=== PATIENT | male | born 1960 | race Two or more races ===

== ENCOUNTER 2023-03-02 13:23 | Inpatient (IN) | payer SELFPAY ==
[~2023-03-02] VITALS: Ht 170.2 cm; Wt 80.0 kg
[2023-03-02 14:28] LABS: Basophils # (auto) 0.1 10 ^3/uL (0-0.2); Basophils % (auto) 0.4 % (0.0-2.0); Eosinophils # (auto) 0 10 ^3/uL (0-0.8); Eosinophils % (auto) 0.3 % (0.0-7.0); Hematocrit 42.6 % (41.0-53.0); Hemoglobin 14.6 g/dL (13.5-17.5); Lymphocytes # (auto) 1.1 10 ^3/uL (0.4-5.4); Lymphocytes % (auto) 8.2 % (10.0-50.0); Mean Corpuscular Hemoglobin 28.8 pg (28.0-32.0); Mean Corpuscular Hgb Conc. 34.3 g/dL (32.0-36.0); Mean Corpuscular Volume 83.9 fL (80.0-100.0); Monocytes # (auto) 0.8 10 ^3/uL (0-1.3); Monocytes % (auto) 6.4 % (0.0-12.0); Neutrophils # (auto) 11.3 10 ^3/uL (1.6-8.6); Neutrophils % (auto) 84.7 % (37.0-80.0); Nucleated Red Blood Cells % 0.1 %; Red Blood Cells 5.08 10^6/uL (4.5-5.90); Red Cell Distribution Width 13.3 % (11.8-14.3); White Blood Cell 13.3 10^3/uL (4.4-10.8)
[2023-03-02] MEDS ORDERED: SODIUM CHLORIDE 0.9% 500 ML IV ONE (14:30)
[2023-03-02 14:45] VITALS: PULSE 73; RESP 20; O2SAT 97
[2023-03-02 14:49] LABS: Alanine Aminotransferase 20 U/L (7-40); Albumin 4.4 g/dL (3.2-4.8); Alkaline Phosphatase 97 U/L (46-116); Anion Gap 8 (5-15); Aspartate Aminotransferase 22 U/L (13-40); BUN/Creatinine Ratio 17.9 (10.0-20.0); Blood Urea Nitrogen 17 mg/dL (9-23); Calcium 9.6 mg/dL (8.5-10.1); Carbon Dioxide 28 mmol/L (20-30); Chloride 100 mmol/L (98-107); Glucose 231 mg/dL (74-106); Potassium 4.3 mmol/L (3.5-5.1); Sodium 136 mmol/L (136-145)
[2023-03-02 14:50] LABS: Bilirubin, Total 0.7 mg/dL (0.2-1.0); Total Protein 7.6 g/dL (5.7-8.2)
[2023-03-02] MEDS ORDERED: ONDANSETRON HCL 4 MG/2 ML VIAL IV ONE (15:30)
[2023-03-02] MEDS ORDERED: MORPHINE SULFATE 4 MG/ML SYR/VIAL IV ONE (15:30)
[2023-03-02 15:41] LABS: Erythrocyte Sedimentation Rate 69 mm/hr (0-20)
[2023-03-02 15:49] LABS: INR 1.06 (0.9-1.15); Partial Thromboplastin Time 32.8 SEC (24.5-34.5); Prothrombin Time 11.1 sec (9.3-11.8)
[2023-03-02 17:42] LABS: Urine Bacteria NONE SEEN /hpf (None Seen); Urine Blood Negative /uL (Negative); Urine Clarity Clear (Clear); Urine Color Yellow (Yellow); Urine Mucus FEW (None Seen); Urine Protein, UAD 1+ (Negative); Urine Specific Gravity 1.027 (1.001-1.035); Urine Urobilinogen Normal (Negative); Urine WBC 1 /hpf (0 - 3); Urine pH 5.5 (5.0-8.0)
[2023-03-02 19:30] VITALS: PULSE 82; RESP 13; O2SAT 97
[2023-03-02] MEDS ORDERED: VANCOMYCIN 1GM/250ML 250 ML IV ONE (20:00)
[2023-03-02] MEDS ORDERED: VANCOMYCIN PER PHARMACY 0 MG IV SCH (21:30)
[2023-03-02] MEDS ORDERED: DEXTROSE (50%) 50ML SYRG IV PRN (21:30)
[2023-03-02] MEDS ORDERED: DOCUSATE SOD 100 MG CAP PO PRN (21:30)
[2023-03-02] MEDS ORDERED: ONDANSETRON HCL 4 MG/2 ML VIAL IV PRN (21:30)
[2023-03-02] MEDS ORDERED: ACETAMINOPHEN 325 MG TAB PO PRN (21:30)
[2023-03-02] MEDS: SODIUM CHLORIDE 0.9% 1,000 ML IV SCH (21:54)
[2023-03-03] VITALS (8 sets, daily range): BP systolic 123–149; BP diastolic 54–75; PULSE 71–88; RESP 17–18; TEMP 97.9–100; O2SAT 92–100
[2023-03-03] MEDS: ACCU-CHEK COMFORT CURVE STRIP VI SCH ×5 (00:43→23:37)
[2023-03-03] MEDS: InsuLIN REG 1unit/0.01ml Soln (100units/ml) SC SCH ×5 (00:48→23:40)
[2023-03-03] MEDS: MORPHINE SULFATE INJ 2 MG/ml SYRG IV PRN ×3 (01:53→16:17)
[2023-03-03 06:13] LABS: Basophils # (auto) 0 10 ^3/uL (0-0.2); Basophils % (auto) 0.3 % (0.0-2.0); Eosinophils # (auto) 0.1 10 ^3/uL (0-0.8); Eosinophils % (auto) 0.5 % (0.0-7.0); Hematocrit 35.5 % (41.0-53.0); Hemoglobin 12.1 g/dL (13.5-17.5); Lymphocytes # (auto) 1.3 10 ^3/uL (0.4-5.4); Lymphocytes % (auto) 12.6 % (10.0-50.0); Mean Corpuscular Hemoglobin 28.5 pg (28.0-32.0); Mean Corpuscular Hgb Conc. 34.1 g/dL (32.0-36.0); Mean Corpuscular Volume 83.6 fL (80.0-100.0); Monocytes # (auto) 0.9 10 ^3/uL (0-1.3); Monocytes % (auto) 9.2 % (0.0-12.0); Neutrophils # (auto) 7.9 10 ^3/uL (1.6-8.6); Neutrophils % (auto) 77.4 % (37.0-80.0); Nucleated Red Blood Cells % 0.1 %; Red Blood Cells 4.25 10^6/uL (4.5-5.90); Red Cell Distribution Width 13.6 % (11.8-14.3); White Blood Cell 10.3 10^3/uL (4.4-10.8)
[2023-03-03 06:32] LABS: Alanine Aminotransferase 12 U/L (7-40); Albumin 3.7 g/dL (3.2-4.8); Alkaline Phosphatase 73 U/L (46-116); Aspartate Aminotransferase 14 U/L (13-40); BUN/Creatinine Ratio 13.2 (10.0-20.0); Blood Urea Nitrogen 12 mg/dL (9-23); Calcium 8.7 mg/dL (8.5-10.1); Chloride 102 mmol/L (98-107); Glucose 261 mg/dL (74-106); Potassium 3.9 mmol/L (3.5-5.1); Sodium 135 mmol/L (136-145)
[2023-03-03 06:33] LABS: Bilirubin, Total 0.4 mg/dL (0.2-1.0); Total Protein 6.4 g/dL (5.7-8.2)
[2023-03-03] MEDS ORDERED: LIDOCAINE W/ EPINEPHRINE 1% 20ML VIAL ONE (07:03)
[2023-03-03] MEDS ORDERED: BUPIVACAINE HCL 0.25% P/F 10 ML VIAL ONE (07:03)
[2023-03-03 07:20] LABS: Anion Gap 9 (5-15); Carbon Dioxide 24 mmol/L (20-30)
[2023-03-03] MEDS ORDERED: ceFAZolin 1GM/50ML 100 ML IV ONE (08:49)
[2023-03-03] MEDS ORDERED: fentaNYL CITRATE 100 MCG/2 ML VL ONE (09:03)
[2023-03-03] MEDS ORDERED: MIDAZOLAM HCL 2MG/2ML 2ml VIAL (1mg/ml) ONE (09:03)
[2023-03-03] MEDS ORDERED: ONDANSETRON HCL 4 MG/2 ML VIAL ONE (09:45)
[2023-03-03] MEDS ORDERED: METOCLOPRAMIDE HCL 5MG/ml INJ 2ml VIAL IV PRN (10:00)
[2023-03-03] MEDS ORDERED: HYDROmorphone HCL 2 MG/ML VL/or syr IV PRN ×2 (10:00)
[2023-03-03] MEDS: ENOXAPARIN SOD 40 MG/0.4 ML SYRINGE SC SCH (10:53)
[2023-03-03] MEDS: HYDROcodone-ACET 5/325MG TAB PO PRN ×2 (13:54→19:52)
[2023-03-03] MEDS: SODIUM CHLORIDE 0.9% 1,000 ML IV SCH (14:45)
[2023-03-04 05:00] VITALS: BP 154/75; PULSE 75; RESP 17; TEMP 98.8; O2SAT 94
[2023-03-04] MEDS: InsuLIN REG 1unit/0.01ml Soln (100units/ml) SC SCH ×4 (06:00→23:55)
[2023-03-04] MEDS: ACCU-CHEK COMFORT CURVE STRIP VI SCH ×4 (06:00→23:54)
[2023-03-04] MEDS: SODIUM CHLORIDE 0.9% 1,000 ML IV SCH ×2 (06:03→23:30)
[2023-03-04] MEDS: HYDROcodone-ACET 5/325MG TAB PO PRN ×3 (06:03→18:03)
[2023-03-04 08:20] VITALS: BP 136/71; PULSE 72; RESP 17; TEMP 98.6
[2023-03-04 09:01] VITALS: BP 136/71; PULSE 72; RESP 17; TEMP 98.6; O2SAT 95
[2023-03-04] MEDS: ENOXAPARIN SOD 40 MG/0.4 ML SYRINGE SC SCH (09:17)
[2023-03-04 14:55] VITALS: BP 146/73; PULSE 66; RESP 18; TEMP 98.6; O2SAT 94
[2023-03-04 17:20] VITALS: BP 141/69; PULSE 67; RESP 16; TEMP 98.4; O2SAT 95
[2023-03-04 22:00] VITALS: BP 134/83; PULSE 65; RESP 18; TEMP 98.2; O2SAT 95
[2023-03-05] MEDS: HYDROcodone-ACET 5/325MG TAB PO PRN ×2 (02:16→16:55)
[2023-03-05 05:00] VITALS: BP 128/69; PULSE 55; RESP 16; TEMP 98.2; O2SAT 96
[2023-03-05] MEDS: ACCU-CHEK COMFORT CURVE STRIP VI SCH ×3 (06:00→18:00)
[2023-03-05] MEDS: InsuLIN REG 1unit/0.01ml Soln (100units/ml) SC SCH ×3 (06:00→18:00)
[2023-03-05 07:58] LABS: Basophils # (auto) 0 10 ^3/uL (0-0.2); Basophils % (auto) 0.7 % (0.0-2.0); Eosinophils # (auto) 0.1 10 ^3/uL (0-0.8); Eosinophils % (auto) 1.8 % (0.0-7.0); Hemoglobin 11.6 g/dL (13.5-17.5); Lymphocytes # (auto) 1.5 10 ^3/uL (0.4-5.4); Lymphocytes % (auto) 22.6 % (10.0-50.0); Mean Corpuscular Hemoglobin 28.3 pg (28.0-32.0); Mean Corpuscular Volume 83.2 fL (80.0-100.0); Monocytes # (auto) 0.6 10 ^3/uL (0-1.3); Neutrophils # (auto) 4.4 10 ^3/uL (1.6-8.6); Neutrophils % (auto) 65.9 % (37.0-80.0); Red Blood Cells 4.09 10^6/uL (4.5-5.90); Red Cell Distribution Width 13.4 % (11.8-14.3); White Blood Cell 6.7 10^3/uL (4.4-10.8)
[2023-03-05 08:08] LABS: Chloride 106 mmol/L (98-107); Potassium 3.9 mmol/L (3.5-5.1); Sodium 138 mmol/L (136-145)
[2023-03-05 08:09] LABS: Anion Gap 3 (5-15); Calcium 8.9 mg/dL (8.5-10.1); Carbon Dioxide 29 mmol/L (20-30)
[2023-03-05 08:14] LABS: Blood Urea Nitrogen 9 mg/dL (9-23)
[2023-03-05 08:21] LABS: Glucose 111 mg/dL (74-106)
[2023-03-05] MEDS: ENOXAPARIN SOD 40 MG/0.4 ML SYRINGE SC SCH (09:04)
[2023-03-05] MEDS ORDERED: BACDST PO (11:46)
[2023-03-05] MEDS ORDERED: INSU1INJ26 SC (11:47)
[2023-03-05] MEDS ORDERED: METF-370 PO (11:48)
[2023-03-05 13:26] VITALS: TEMP 36.8
[2023-03-05 14:26] VITALS: BP 153/77; PULSE 66; RESP 17; TEMP 98.8; O2SAT 98
[2023-03-05] MEDS: SODIUM CHLORIDE 0.9% 1,000 ML IV SCH (16:10)
== END 2023-03-05 19:50 | disposition home or self-care (01) | DRG 239 ==
LOC: ER 13:23 → OVERFLOW 21:29 → EAST 03-03 01:47
PROVIDERS: ADMIT Nurse Practitioner Family; ATTEND Internal Medicine Pulmonary Disease
PROC: 0Y6M0ZC Detachment at Right Foot, Partial 3rd Ray, Open Approach (ICD-10-PCS; principal; 2023-03-03 09:10)
DX: E11.52 Type 2 diabetes mellitus with diabetic peripheral angiopathy with gangrene (principal); A48.0 Gas gangrene; L03.115 Cellulitis of right lower limb; E11.65 Type 2 diabetes mellitus with hyperglycemia; Z91.199 Patient's noncompliance with other medical treatment and regimen due to unspecified reason; Z83.3 Family history of diabetes mellitus; F17.210 Nicotine dependence, cigarettes, uncomplicated; D72.829 Elevated white blood cell count, unspecified
CPT/HCPCS: 36415; 71045; 73630; 73700; 80048; 80053; 81001; 82962; 83036; 83605; 85025; 85610; 85652; 85730; 86850; 86900; 86901; 87040; 87070; 87075; 87077; 87186; 87205; 93926; 96361; 96365; 96375; 97110; 97116; 97163; 97530; G0378; J0690; J1815; J2250; J2405; J3490